=== PATIENT | female | born 1980 | race African-American/Black ===

== ENCOUNTER 2019-10-10 23:22 | Emergency (ER) | payer OTHER, BC ==
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
[2019-10-11] MEDS ORDERED: IBUPROFEN SUSP 100 MG/5 ML ORAL SYRINGE PO STA (01:34)
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
[2019-10-11 03:21] VITALS: BP 122/88
== END 2019-10-11 03:23 | disposition home or self-care (01) ==
LOC: ER 23:22
DX: M54.6 Pain in thoracic spine (principal); M54.5 Low back pain; V89.2XXA Person injured in unspecified motor-vehicle accident, traffic, initial encounter
CPT/HCPCS: 71045; 72070; 81025; 99283

== ENCOUNTER 2020-07-02 10:45 | Emergency (ER) | payer BC, OTHER ==
[2020-07-02] MEDS ORDERED: ACETAMINOPHEN 325 MG TABLET PO ONE (11:52)
[2020-07-02] MEDS ORDERED: ACETAMINOPHEN SOLN 325 MG/10.15 ML UDCUP PO ONE (11:53)
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
[2020-07-02] MEDS ORDERED: DIPH/PERTUSS(ACELL)/TETANUS VAC/PF 0.5 ML SYR (>=10YO) IM ONE (15:05)
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
[2020-07-02 15:40] VITALS: BP 109/88
== END 2020-07-02 15:39 | disposition home or self-care (01) ==
LOC: ER 10:45
DX: S00.83XA Contusion of other part of head, initial encounter (principal); S00.81XA Abrasion of other part of head, initial encounter; S60.512A Abrasion of left hand, initial encounter; S60.511A Abrasion of right hand, initial encounter; V86.99XA Unspecified occupant of other special all-terrain or other off-road motor vehicle injured in nontraffic accident, initial encounter; Z23 Encounter for immunization
CPT/HCPCS: 99284; 96372; 73130; 70486; 90715; J3490